=== PATIENT | female | born 1955 | race Caucasian/White ===

== ENCOUNTER 2021-09-08 09:37 | Outpatient (CLI) | payer MEDICARE, BC, SELFPAY ==
--- NOTE | ~2021-09-08 | CT_ITS ---
EXAMINATION: CT sinus wo con DATE: 09/08/2021 10:05 INDICATION: Chronic sinusitis TECHNIQUE: Computed tomography (CT) of the paranasal sinuses was performed without intravenous contra st. The dose-length product was 278.92 mGy-cm. Automated exposure control and iterative reconstructio n technique were employed. COMPARISON: None FINDINGS: Paranasal sinuses are pneumatized. No significant mucosal thickening. No abnormal air-fluid levels. No nasal septal deviation. There are surgical changes of the ostiomeatal units. Mastoids are pneumatized. IMPRESSION: 1. No significant sinus disease. Reviewed, dictated and finalized at location [facility]. [facility]
== END 2021-09-08 09:38 | disposition home or self-care (01) ==
LOC: ANHIMG 09:45
PROVIDERS: PCP Nurse Practitioner Family; Visit Provider Otolaryngology
DX: J32.9 Chronic sinusitis, unspecified (principal)
CPT/HCPCS: 70486

== ENCOUNTER 2025-05-30 11:33 | Emergency (ER) | payer MEDICARE, BC, SELFPAY ==
--- OUTSIDE RECORDS SUMMARY | 2025-05-30 11:36 | XMS_ITS | Encounter Summary ---
Author Organization [facility] Address [address] [place] [address] Care Team Providers Care Shrub Grower Name Role Phone Mairza Garcia MD Primary Care Provider [phone] Encounter Details Date Type Department Care Team (Late st Contact Info) Description 02/16/2025 [employer] Message [facility] Family & Internal Medicine [address] [address] Christian, [facility] Provider Dr leung Social History Tobacco Use Types Packs/Day Years Used Date Smoking Tobacco: Never Passive Smoke Exposure: Never Smokeless Tobacco: Never Comments:NON SMOKER Alcohol Use Standard Drinks/Week Comments Yes 1.7 (1 standard drink = 0.6 oz p ure alcohol) Social AUDIT-C Answer Date Recorded Frequency of Alcohol Consumption Not on file 06/17/2020 Average Number of Drinks Not on file 020 Q3: How often do you have si x or more drinks on one occasion? Never 06/17/2020 PHQ-2 Answer Date Recorded Patient Health Questionnaire-2 Score 0 11/17/2024 Education Answer Date Recorded What is the highest level of school you have completed or the highest degree you have received? 11th grade 09/15/2018 Comments No Sex and Gender Information Value Date Recorded Sex Assigned at Female 10/02/2019 11:06 AM KIDS ACTIVITIES COACH Legal Sex Female 10:53 PM CDT Gender Identity Female 10/02/2019 11:06 AM KIDS ACTIVITIES COACH Sexual Orientation Straight 12/10/2018 7: 53 AM KIDS ACTIVITIES COACH Occupation Industry Job Start Date Job End Date Not on file Not on file Not on file Not on file documented as of this encounter Plan of Treatment Upcoming Encounters Date Type Department Care Team (Late st Contact Info) Description 11/19/2025 10:00 AM KIDS ACTIVITIES COACH Office Visit [facility] Family & Internal Medicine [facility] [address] [place] [address] [place] [address] [address] documented as of this encounter Visit Diagnoses Not on filedocumented in this encounter Additional Health Concerns Infection Onset Date Last Indicated Resolved Time MRSA 06/05/2017 06/05/2017 Assessment Noted Time PHQ-9 Depression Total Score: 0 11/17/19 9:52 AM KIDS ACTIVITIES COACH documented as of this encounter Care Teams Shrub Grower Relationship Specialty [place] [address] [address] PCP - General INTERNAL MEDICINE 12/15/24 documented as of this encounter
--- OUTSIDE RECORDS SUMMARY | 2025-05-30 11:36 | XMS_ITS | Encounter Summary ---
Author Organization [facility] Address [address] [place] [address] Care Team Providers Care Site Manager Name Role Phone Sonja Wagner PA-C Primary Care Provider [phone] Mariza Garcia MD Primary Care Provider [phone] Encounter Details Date Type Department Care Team (Late st Contact Info) Description 09/30/2024 [employer] Message Enc [facility] Family & Internal Medicine [facility] [id number] [place] [address] [facility], [facility] Provider Need to reset appt Social History Tobacco Use Types Packs/Day Years [...] Date Recorded Patient Health Questionnaire-2 Score 0 12/30/2023 Education Answer Date Recorded What is the highest level of school you have completed or the highest degree you have received? 11th grade 09/15/2018 Comments No Sex and Gender Information Value Date Recorded Sex Assigned at Female 10/02/2019 11:06 AM DEPARTMENT CHAIR Legal Sex Female 10:53 PM CDT Gender Identity Female 10/02/2019 11:06 AM DEPARTMENT CHAIR Sexual Orientation Straight 12/10/2018 7: 53 AM DEPARTMENT CHAIR Occupation Industry Job Start Date Job End Date Not on file Not on file Not on file Not on file documented as of this encounter Plan of Treatment Upcoming Encounters Date Type Department Care Team (Late st Contact Info) Description 11/19/2025 10:00 AM DEPARTMENT CHAIR Office Visit [facility] Family & Internal Medicine [facility] [address] [place] [address] [place] [address] [address] documented as of this encounter Visit Diagnoses Not on filedocumented in this encounter Additional Health Concerns Infection Onset Date Last Indicated Resolved Time MRSA 06/05/2017 06/05/2017 Assessment Noted Time PHQ-9 Depression Total Score: 0 01/12/20 22 8:57 AM CDT documented as of this encounter Care Teams Site Manager Relationship Specialty Start Date End Date Sonja Wagner PA-C PCP - General PHYSICIAN OFFICE MANAGER RECEPTIONIST 08/29/23 12/14/24 [place] [address] [address] PCP - General INTERNAL MEDICINE 12/15/24 documented as of this encounter
--- OUTSIDE RECORDS SUMMARY | 2025-05-30 11:36 | XMS_ITS | Encounter Summary ---
Author Organization [facility] Address [address] [place] [address] Care Team Providers Care Pilot Steam Yacht Name Role Phone Vicky Pacheco- Primary Care Provider + Sonja WagnerC Primary Care Provider [phone] Mariza Garcia MD Primary Care Provider [phone] Encounter Details Date Type Department Care Team (Late st Contact Info) Description 04/24/2023 [employer] Message Enc [facility] - [facility] [address] [place], [place] [address] [facility], [facility] Provider Air Quality Message Social History Tobacco Use Types Packs/Day Years Used Date Smoking Tobacco: Never Smokeless Tobacco: Never Comments:NON SMOKER Alcohol [...] Date Recorded Patient Health Questionnaire-2 Score 0 11/30/2022 Education Answer Date Recorded What is the highest level of school you have completed or the highest degree you have received? 11th grade 09/15/2018 Comments No Sex and Gender Information Value Date Recorded Sex Assigned at Female 10/02/2019 11:06 AM PROCESS STRIPPER Legal Sex Female 10:53 PM CDT Gender Identity Female 10/02/2019 11:06 AM PROCESS STRIPPER Sexual Orientation Straight 12/10/2018 7: 53 AM PROCESS STRIPPER Occupation Industry Job Start Date Job End Date Not on file Not on file Not on file Not on file documented as of this encounter Plan of Treatment Upcoming Encounters Date Type Department Care Team (Late st Contact Info) Description 11/19/2025 10:00 AM PROCESS STRIPPER Office Visit [facility] Family & Internal Medicine [facility] [address] [place] [address] [place] [address] [id number] documented as of this encounter Visit Diagnoses Not on filedocumented in this encounter Additional Health Concerns Infection Onset Date Last Indicated Resolved Time MRSA 06/05/2017 06/05/2017 COVID-19 Rule Out 10/29/2023 10/29/2023 10/29/2023 12:19 PM PROCESS STRIPPER COVID-19 Confirmed 10/29/2023 10/29/2023 12:32 AM PROCESS STRIPPER COVID-19 Rule Out 10/29/2023 10/29/2023 10/29/2023 1:27 PM PROCESS STRIPPER COVID-19 Rule Out 12/30/2023 12/30/2023 12/30/2023 9:31 AM PROCESS STRIPPER Assessment Noted Time PHQ-9 Depression Total Score: 0 01/12/20 22 8:57 AM CDT documented as of this encounter Care Teams Pilot Steam Yacht Relationship Specialty Start Date End Date Vicky Pacheco FNP-BC PCP - General Nurse Practitioner Family 08/28/2110/19 Sonja Wagner PA-C PCP - General PHYSICIAN INDUSTRIAL SALES ENGINEER 08/29/23 12/14/24 [place] [address] [address] PCP - General INTERNAL MEDICINE 12/15/24 documented as of this encounter
--- OUTSIDE RECORDS SUMMARY | 2025-05-30 11:36 | XMS_ITS | Clinical Summary ---
Author Organization [facility] Address [address] [place] [address] Care Team Providers Care Metallurgical Technician Name Role Phone Burt Erickson MD Primary Care Provider [phone] Source Comments [facility],non-owned Affiliates and Associated Physician Practices is amultiple site organization consisting of ambulatory clinics and hospital sitesin [place], [place], [place] and [place]. This disclosure is being madepursuant to the Care Everywhere program and may not contain all information available regarding this patient. Last updated 18.[facility] Allergies Active Allergy Reactions Criticality Noted Date Comments Adhesive Sensitivity Rash Medium 05/21/2019 Paper tape ok Cefuroxime GI Discomfort,Bleeding 05/21/2019 Anal bleeding Medications * Be aware that medications may not be up to date on this document. Alwaysverify current medications with the patient. aspirin (ASPIRIN) 81 MG tablet Take 81 mg by mouth once daily Active B Complex Vitamins (B COMPLEX PO) Take by mouth once daily Active Stopover-3 Fatty Acids (FISH OIL) 1000 MG capsule Take 2,000 mg by mouth once daily Active hydroCHLOROthia zide (HYDRODIURIL) 12.5 MG Take 12.5 mg by mouth once daily Active metoprolol succinate XL 24hr (TOPROL XL) 50 MG tablet Take 50 mg by mouth once daily Active multivitamin daily tablet Take 1 tablet by mouth daily with food Active Cholecalciferol (VITAMIN D3) 400 units Take 3 tablets by mouth once daily Active Zinc Oxide 9.38 % by Apply externally route 2 times daily as needed Active oxyCODONE-aceta minophen (PERCOCET) 7.5-325 MG tablet Take 1 tablet by mouth every 6 hours as needed for Pain 40 tablet 9 Active Social History Tobacco Use Types Packs/Day Years Used Date Smoking Tobacco: Never Smokeless Tobacco: Never Alcohol Use Standard Drinks/Week Comments Yes 0 (1 standard drink = 0.6 oz pur e alcohol) wine socially Comments Unknown Sex and Gender Information Value Date Recorded Sex Assigned at Not on file Legal Sex Female 2:15 PM CDT Gender Identity Not on file Sexual Orientation Not on file Last Filed Vital Signs Vital Sign Reading Time Taken Comments Blood Pressure 174/68 05/22/2019 2:55 PM CDT Pulse 85 05/22/2019 2:55 PM CDT Temperature 36.1 C (97 F) 05/22/2019 1:26 PM CDT Respiratory Rate 16 05/22/2019 2:55 PM CDT Oxygen Saturation 92% 05/22/2019 2:55 PM CDT Inhaled Oxygen Concentration - - Weight 148.3 kg (327 lb) 05/22/2019 9:55 AM CDT Height 165.1 cm (5' 5) 05/22/2019 9:55 AM CDT Body Mass Index 54.42 05/22/2019 9:55 AM CDT Plan of Treatment Health Maintenance Due Date Last Done Comments BONE DENSITY TESTING 1955 COLOGUARD (AGES 45-75) - COL ON CA SCREENING 1953 COLON MONITORING 1953 COLONOSCOPY - COLON CA SCREENING 1953 CT COLONOGRAPHY - COLON CA SCREENING 1953 Colorectal Cancer Screening 1953 FIT - COLON CA SCREENING 1953 FLEX SIG - COLON CA SCREENING 1953 LIPID TESTING 1953 MAMMOGRAM 1953 HEPATITIS C SCREENING 02/21/1971 DTAP/TDAP/TD VACCINES (1 - Tdap) 02/26/1972 PNEUMOCOCCAL VACCINE 50+ (1 of 1 - PCV) 2003 ZOSTER VACCINE (1 of 2) 2003 Respiratory Syncytial Virus (RSV) Vaccine Pt: or over 60 yrs (1 - Risk 60-74 years 1-dose series) 2013 COVID-19 VACCINE ( - 2023-2 5 season) 2024 DEPRESSION SCREENING 10/28/2024 INFLUENZA VACCINE (#1) 2025 HEPATITIS B VACCINE Aged Out No longe r eligible based on patient's age to complete this topic HIB VACCINE Aged Out No longer eligi ble based on patient's age to complete this topic HPV VACCINE Aged Out No longer eligi ble based on patient's age to complete this topic MENINGOCOCCAL (Group B) VACC INE SHARED DECISION-MAKING Aged Out No longer eligibl e based on patient's age to complete this topic MENINGOCOCCAL GROUPS A/C/Y/W VACCINE Aged Out No longer eligible b ased on patient's age to complete this topic Insurance MEDICARE [facility] Care Teams Metallurgical Technician Relationship Specialty Start Date End Date Burt Erickson MD PCP - General Family Medicine 05/22/19
--- OUTSIDE RECORDS SUMMARY | 2025-05-30 11:36 | XMS_ITS | Referral Summary ---
Author Organization [facility] Address [address] [place] [address] Care Team Providers Care Lubrication Supervisor Name Role Phone Vicky Pacheco NP Primary Care Provider [phone] Encounters Date Type Department Care Team Description 05/17/2025 Results Follow-Up [facility] Surgery [address] [place] [phone] Karen Oakes PA Screening Mammogram Bilateral W Jose 05/14/2025 8:28 AM CDT - 05/14/2025 11:59 PM CDT Hospital Encounter [facility] - Breast Imaging [address] [place] [address] History of breast cancer; Encounter for screening mammogram for malignant neoplasm of breast Discharge Disposition: Discharge to home or self care 05/14/2025 8:45 AM CDT Office Visit [facility] Surgery [address] [place] [phone] Karen Oakes PA Infiltrating ductal carcinoma of left breast (HCC) (Primary Dx); History of breast cancer; Encounter for screening mammogram for malignant neoplasm of breast; History of partial mastectomy, left from Last 3 Months Allergies Active Allergy Reactions Criticality Noted Date Comments Adhesive Tape-Silicones Rash Medium 08/22/2011 Cefuroxime Other (See comments) Low 04/02/2018 RECTAL BLEEDING AND CRAMPS Cefuroxime Axetil Unknown 11/22/2016 Metformin Diarrhea Low 08/31/2021 Sulfamethoxazole-Trime thoprim Other (See comments) Low 10/09/2023 Kidney pain Medications aspirin 81 mg tablet Active loratadine-pseudo ephedrine (CLARITIN-D 24-hour) 10-240 mg per 24 hr tablet TAKE ONE TABLET BY MOUTH EVERY DAY DIRECTED 2 Active omega 8-soz-uvp-fish oil 100-160-1,000 mg capsule Active meloxicam (MOBIC) 15 mg tablet 8 Active diazePAM (VALIUM) 5 mg tablet 0 8 Active penicillin v potassium (VEETID) 500 mg tablet 8 Active cholecalciferol (VITAMIN D-3) 2,000 unit tablet daily. Ac tive multivitamin tabletIndications :Vitamin Deficiency Prevention Active chlorhexidine (PERIDEX) 0.12 % solution 8 Active glucosamine-chond roitin 500-400 mg tablet daily. Active amoxicillin-clavu lanate (AUGMENTIN) 875-125 mg per tablet 9 Active benzonatate (TESSALON) 100 mg capsule 9 Active hydroCHLOROthiazi de (MICROZIDE) 12.5 mg capsule 9 Active Lacto.acidophilus -Bif.animalis 31 billion cell capsule Take by mouth Active metoprolol XL (TOPROL-XL) 50 mg 24 hr tablet 9 Active predniSONE (DELTASONE) 20 mg tablet 9 Active atorvastatin (LIPITOR) 20 mg tablet Take 1 tablet (20 mg total) by mouth daily Active glyBURIDE (DIABETA) 2.5 mg tablet Take 1 tablet (2.5 mg total) by mouth daily with breakfast Active aspirin 81 mg enteric coated tablet Take 1 tablet (81 mg total) by mouth daily Active albuterol HFA (Ventolin HFA) 90 mcg/actuation inhalerIndication s:Moderate persistent asthma without complication Inhale 2 puffs every 6 (six) hours as needed (coughing, wheezing, shortness of breath, or chest congestion) 18 g 5 1 Active alendronate (FOSAMAX) 35 mg tablet TAKE 1 TABLET BY MOUTH ONCE A WEEK TAKE WITH A FULL GLASS OF WATER IN THE MORNING BEFORE ANY MEDS OR FOOD. SIT UP FOR 30 MINUTES AFTER TAKING 2 Active lisinopriL (PRINIVIL,ZESTRIL ) 5 mg tablet Take 1 tablet (5 mg total) by mouth daily 2 Active montelukast (SINGULAIR) 10 mg tablet Take 1 tablet (10 mg total) by mouth nightly at bedtime. 2 Active omeprazole (PriLOSEC) 40 mg capsule Take 1 capsule (40 mg total) by mouth daily 1 Active semaglutide (OZEMPIC) 0.25 mg or 0.5 mg(2 mg/1.5 mL) pen injector injection Inject 0.5 mg under the skin once a week 2 Active fluticasone furoate-vilantero L (BREO ELLIPTA) 100-25 mcg/dose diskus inhalerIndication s:Maintenance Therapy for Asthma Inhale 1 puff daily Rinse mouth with water after use. Do not swallow. 60 each 6 2 Active Trulicity 3 mg/0.5 mL pen injector Inject 0.5 mL (3 mg total) under the skin once a week 5 Active cetirizine (ZyrTEC) 10 mg tablet Take 1 tablet (10 mg total) by mouth daily 5 Active Active Problems Problem Noted Date Diagnosed Date Abnormal CXR 04/12/2021 Recurrent acute suppurative otitis media of right ear without spontaneous rupture of tympanic membrane 11/15/2020 History of breast cancer 04/08/2019 Elevated alkaline phosphatase level 06/12/2018 Malignant neoplasm of lower- inner quadrant of left female breast 11/22/2016 Chest pain SOB (shortness of breath) Social History Tobacco Use Types Packs/Day Years Used Date Smoking Tobacco: Never Smokeless Tobacco: Never Tobacco Cessation:Counseling Given: Not Answered Alcohol Use Standard Drinks/Week Comments Yes 1 (1 standard drink = 0.6 oz pur e alcohol) nightly Comments No Sex and Gender Information Value Date Recorded Sex Assigned at Not on file Legal Sex Female 3:55 AM CREDIT AND LOAN COLLECTIONS SUPERVISOR Gender Identity Female 04/27/2021 11:40 AM CDT Sexual Orientation Straight 04/24/2023 10 :33 AM CDT 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 Not on file Not on file Last Filed Vital Signs Vital Sign Reading Time Taken Comments Blood Pressure 144/84 04/25/2022 12:57 PM CDT Pulse 74 04/25/2022 12:57 PM CDT Temperature 36.6 C (97.8 F) 10/04/2021 1:10 PM CREDIT AND LOAN COLLECTIONS SUPERVISOR Respiratory Rate 18 04/25/2022 12:5 7 PM CDT Oxygen Saturation 92% 04/25/2022 12: 57 PM CDT Inhaled Oxygen Concentration - - Weight 142.5 kg (314 lb 3.2 oz) 05/14/2025 8:16 AM CDT Height 166.2 cm (5' 5.43) 05/14/2025 8:16 AM CD T Body Mass Index 51.6 05/14/2025 8:16 AM CDT Plan of Treatment Not on file Procedures Procedure Name Priority Date/Time Associated Diagnosis Comments SCREENING MAMMOGRAM BILATERAL W JOSE Schedule Routine, Read Routine (OP Routine) 05/14/2025 8:46 AM CDT History of breast cancer Encounter for screening mammogram for malignant neoplasm of breast from Last 3 Months Results * Screening Mammogram Bilateral W Jose (05/14/2025 8:46 AM CDT) Anatomical Region Laterality Modality Breast Bilateral Mammography Impressions 05/17/2025 1:05 PM CDT Bilateral No evidence of malignancy in either breast. OVERALL BI-RADS FINAL ASSESSMENT: 1 - Negative RECOMMENDATION: Recommend bilateral annual screening mammography. Narrative 05/17/2025 1:05 PM CDT EXAMINATION: Screening Mammogram Bilateral W Jose: 05/14/2025 COMPARISON: Relevant prior studies available at the time of interpretation were reviewed, including the most recent mammogram on: 05/06/2024. TECHNIQUE: Mammography was performed with 2D and digital breast tomosynthesis (DBT) images. CAD was utilized. BREAST PARENCHYMAL COMPOSITION: The breasts are almost entirely fatty. FINDINGS: Bilateral There is no suspicious mass, calcification, or architectural distortion in either breast.There are breast conservation therapy changes. Jaqueline Tejada NP IMG MAMMO PROCEDURES Final Result from Last 3 Months Insurance MEDICARE [facility] MEDICARE [facility] MEDICARE [facility] MEDICARE [facility] [employer] Member Subscriber Plan / Payer (Ef fective 2005-) Name:Jarrodmaribel Candida Mitch Relation to Subscriber:Self Name:Candida De Leon Payer ID:[id number] (NA) Group ID:[id number] Type:[employer] Address: [facility] [id number] [place] [id number] Care Teams Lubrication Supervisor Relationship Specialty [place] [address] [place] [address] PCP - General Nurse Practitioner 10/04/21
--- OUTSIDE RECORDS SUMMARY | 2025-05-30 11:36 | XMS_ITS | Clinical Summary ---
Author Organization [facility] Address [address] [place] [id number] Care Team Providers Care Fish Rod Maker Name Role Phone Esmer Le MD Primary Care Provider [phone] Allergies Active Allergy Reactions Criticality Noted Date Comments Cefuroxime Other (see comment) Low 08/28/2012 Bloody stools, abdominal cramps Metformin Diarrhea Low 08/31/2021 Sulfamethoxazole-Trime thoprim Other (see comment) 10/09/2023 Kidney pain Tape Rash Medium 08/22/2011 Medications aspirin 81 MG tablet Take 1 tablet (81 mg total) by mouth daily. Active vitamin D3, cholecalciferol, 10 MCG (400 UNIT) tablet Take 2 tablets (20 mcg total) by mouth daily. Active Multiple Vitamins-Mineral s (WOMENS MULTI VITAMIN & MINERAL) Tab Take 1 tablet by mouth daily. Active fish oil 1000 MG Cap capsule Take 1 capsule (1,000 mg total) by mouth daily. Active Blood Glucose Monitoring Suppl (TRUE METRIX METER) w/Device KitIndications:T ype 2 diabetes mellitus without complication, without long-term current use of insulin ([facility]/HCC HHS/HCC) 1 each by Does not apply route daily. 1 kit 020 Active Glucose Blood (TRUE METRIX PRO BLOOD GLUCOSE) test stripIndications :Type 2 diabetes mellitus without complication, without long-term current use of insulin (CMS/HCC HHS/HCC) 1 strip by Other route daily. Use as instructed 100 strip 3 020 Active Lancets MiscIndications: Type 2 diabetes mellitus without complication, without long-term current use of insulin ([facility]) 1 each by Does not apply route daily. 1 Container 3 020 Active glucosamine-kayli droitin 500-400 mg Tab tablet Take 1 tablet by mouth daily. Active albuterol sulfate HFA 108 (90 Base) MCG/ACT inhaler INHALE 2 PUFFS BY MOUTH EVERY 6 HOURS NEEDED FOR COUGH WHEEZING SHORTNESS OF BREATH OR CHEST CONGESTION 021 Active FERROUS SULFATE EC 325 (65 Fe) MG tabletIndication s:Iron deficiency anemia, unspecified iron deficiency anemia type Take 1 tablet by mouth twice daily 180 tablet 022 Active ibuprofen (MOTRIN) 800 MG tablet Take 1 tablet (800 mg total) by mouth 2 (two) times daily with meals. 024 Active omeprazole EC (PRILOSEC OTC) 20 MG tablet Take 1 tablet (20 mg total) by mouth daily. Active metoprolol succinate ER (TOPROL-XL) 50 MG 24 hr tabletIndication s:Essential hypertension TAKE 1 TABLET DAILY 90 tablet 025 Active glyBURIDE (DIABETA) 2.5 MG tabletIndication s:Type 2 diabetes mellitus with other circulatory complication, without long-term current use of insulin ([facility]) TAKE 2 TABLETS AT BREAKFASTAND 1 TABLET AT DINNER 270 tablet 025 Active TRULICITY 3 MG/0.5ML injectionIndicat ions:Type 2 diabetes mellitus with microalbuminuria , without long-term current use of insulin ([facility]) INJECT 1 SYRINGE SUBCUTANEOUSLY ONCE A WEEK 4 mL 025 Active alendronate (FOSAMAX) 70 MG tabletIndication s:Osteoporosis, unspecified osteoporosis type, unspecified pathological fracture presence Take 1 tablet (70 mg total) by mouth every 7 days. 4 tablet 6 025 2025 Active levocetirizine (XYZAL) 5 MG tabletIndication s:Seasonal allergies Take 1 tablet (5 mg total) by mouth nightly at bedtime. 30 tablet 1 025 Active lisinopril (PRINIVIL) 20 MG tabletIndication s:Primary hypertension Take 1 tablet (20 mg total) by mouth daily. 90 tablet 1 025 07/24/ 2026 Active atorvastatin (LIPITOR) 20 MG tabletIndication s:Mixed hyperlipidemia TAKE 1 TABLET NIGHTLY AT BEDTIME 90 tablet Active hydroCHLOROthiaz greer (MICROZIDE) 12.5 MG capsuleIndicatio ns:Primary hypertension TAKE 1 CAPSULE DAILY 90 capsule 025 Active BREO ELLIPTA 100-25 MCG/INH inhaler INHALE 1 PUFF BY MOUTH ONCE DAILY RINSE MOUTH WITH WATER AFTER USE. DO NOT SWALLOW 021 2024 Discontinued amoxicillin (AMOXIL) 500 MG capsule Take 4 capsules (2,000 mg total) by mouth once. 025 2024 Discontinued cetirizine (ZYRTEC) 10 MG tabletIndication s:Type 2 diabetes mellitus with microalbuminuria , without long-term current use of insulin ([facility]),Essenti al hypertension,Mix ed hyperlipidemia,S easonal allergies Take 1 tablet (10 mg total) by mouth daily. 90 tablet 1 025 2024 Discontinued atorvastatin (LIPITOR) 20 MG tabletIndication s:Mixed hyperlipidemia TAKE 1 TABLET NIGHTLY AT BEDTIME 90 tablet 025 2024 Discontinued hydroCHLOROthiaz greer (MICROZIDE) 12.5 MG capsuleIndicatio ns:Essential hypertension TAKE 1 CAPSULE DAILY 90 capsule 025 2024 Discontinued lisinopril (PRINIVIL) 10 MG tabletIndication s:Essential hypertension Take 1 tablet (10 mg total) by mouth daily. 90 tablet 2024 Discontinued( Dose adjustment) alendronate (FOSAMAX) 35 MG tabletIndication s:Localized osteoporosis without current pathological fracture Take 1 tablet (35 mg total) by mouth every 7 days. TAKE WITH FULL GLASS OF WATER IN THE MORNING BEFORE ANY MEDS OR FOOD; SIT UP FOR 30 MINUTES AFTER TAKING. 12 tablet 1 025 2024 Discontinued dulaglutide (TRULICITY) 3 MG/0.5ML injectionIndicat ions:Type 2 diabetes mellitus with microalbuminuria , without long-term current use of insulin ([facility]) Inject 3 mg into the skin once a week. 2 mL 025 2024 Discontinued doxycycline monohydrate 100 MG capsuleIndicatio ns:Acute upper respiratory infection, unspecified Take 1 capsule (100 mg total) by mouth 2 (two) times daily for 7 days. 14 capsule 025 2024 Active Problems Problem Noted Date Diagnosed Date Microalbuminuria 05/20/2025 Assessment & Plan (05/20/2025 11:13 AM CDT): Latest Reference Range & Units 02/17/25 07:59 ALBUMIN/CREAT RATIO <30.0 MG/G 39.0 (H) (H): Data is abnormally high On lisinopril already-medication was adjusted recently to improve blood pressure control Osteopenia of neck of right femur 05/16/2025 Gastroesophageal reflux dise ase, unspecified whether esophagitis present 05/16/2025 Assessment & Plan (05/20/2025 11:13 AM CDT): Rarely needs omeprazole lately On the dietary habits Dyslipidemia 05/16/2025 Assessment & Plan (05/20/2025 11:13 AM CDT): Latest Reference Range & Units 02/17/25 07:59 CHOLESTEROL <200.0 MG/DL 133 CHOL/HDL RATIO 0.0 - 4.5 3.3 HDL >40.0 MG/DL 40 (L) LDL (CALCULATED) <100 MG/DL 50 NON HDL CHOLESTEROL <130 MG/DL 93 TRIGLYCERIDES <150 MG/DL 214 (H) VLDL CALCULATION 5 - 55 MG/DL 43 (L): Data is abnormally low (H): Data is abnormally high Currently on atorvastatin 20 mg at supper Recommend to cut back complex sugary products Seasonal allergies 11/17/2024 Assessment & Plan (05/20/2025 11:13 AM CDT): Has postnasal drainage, zyrtec not helping Try Xyzal Orders: levocetirizine (XYZAL) 5 MG tablet; Take 1 tablet (5 mg total) by mouth nightly at bedtime. Body mass index (BMI) 50.0-59.9, adult Type 2 diabetes mellitus wit h other circulatory complication, without long-term current use of insulin ([facility]) 05/01/2023 Morbid (severe) obesity due to excess calories 0 04/22/2023 Class 3 severe obesity witho ut serious comorbidity with body mass index (BMI) of 50.0 to 59.9 in adult, unspecified obesity type 10/11/2022 EDER (obstructive sleep apnea) 10/11/2022 Assessment & Plan (05/20/2025 11:13 AM CDT): Couldn't tolerate CPAP nor oral device Not eligible for Inspire procedure. Clinically feeling all right per the patient Moderate persistent asthma without complication ([facility]) 10/11/2022 Vertigo 08/31/2022 Mixed hyperlipidemia 08/29/2022 Osteoporosis, unspecified os teoporosis type, unspecified pathological fracture presence 08/29/2022 Assessment & Plan (05/20/2025 11:13 AM CDT): Per DEXA January (Osteoporosis of the right femoral neck. Osteopenia of the left femoral neck. ) Orders: alendronate (FOSAMAX) 70 MG tablet; Take 1 tablet (70 mg total) by mouth every 7 days. Thrombocytosis 08/29/2022 Primary osteoarthritis of right knee 08/28/2021 Type 2 diabetes mellitus wit h microalbuminuria, without long-term current use of insulin ([facility]) 04/06/2021 Assessment & Plan (05/20/2025 11:13 AM CDT): Latest Reference Range & Units 02/17/25 07:59 HGB A1C <5.7 % 6.0 (H) (H): Data is abnormally high Currently on Trulicity 3 mg weekly along with DiaBeta 2.5 mg daily Denies having tingling or numbness in the extremities Does see nuclear weapons mechanical specialist yearly History of left breast cancer 04/08/2019 Assessment & Plan (05/20/2025 11:13 AM CDT): Under care by [facility] yearly Elevated erythrocyte sedimentation rate 08/21/20 18 Chronic sinusitis 08/19/2018 Low back pain 07/21/2018 Primary hypertension 08/27/2012 Assessment & Plan (05/20/2025 11:13 AM CDT): Better controlled while on lisinopril 20 mg daily along with the low-salt diet Orders: lisinopril (PRINIVIL) 20 MG tablet; Take 1 tablet (20 mg total) by mouth daily. Resolved Problems Problem Noted Date Diagnosed Date Resolved Date Body mass index (BMI) 50.0-59.9, adult 04/22/2023 05/01/2023 Intolerance of continuous po sitive airway pressure (CPAP) ventilation 10/11/2022 10/15/2022 Morbid obesity with BMI of 50.0-59.9, adult 03/06/2021 05/01/2023 Elevated C-reactive protein (CRP) 08/21/2018 08/29/2022 Tendonitis 08/18/2018 08/29/2022 Cough 07/21/2018 12/09/2019 Malignant neoplasm of lower- inner quadrant of left female breast ([facility]/HCC [facility]) 11/22/2016 Obesity with body mass index 30 or greater 06/12/2016 08/31/2021 Encounters Date Type Department Care Team Description 05/20/2025 10:20 AM CDT Office Visit [facility] Family & Internal Medicine - [address] [phone] Esmer Le MD Medication (Follow up medication / sinus infection) 05/20/2025 Travel from Last 3 Months Immunizations Immunization Administration Dates Next Due Arexvy Respiratory Syncytial Virus (RSV, adjuvanted) 0.5 mL, PF 07/24/2023 Dtap (Generic) 09/15/2018 Fluzone High Dose (IIV, triv alent, 0.5mL) 08/05/2024 Fluzone High Dose - >Age 65 (Prefilled Syringe) 07/24/2023,08/04/2022,07/12/2021 Influenza (Generic) 09/15/2018, 7,08/01/2016,2014,07/26/2014,07/24/2013,10/04/2012 Influenza Adult (Generic) 07/29/2020,,08/07/2015,2013,07/24/2013,10/04/2012 [email or web address] ([employer]) COVID-19 AD26 VACCINE 0.5 ML IM SUSP 01/05/2021 PFIZER COVID-19 (MEADOWS CAP), MRNA, LNP-S, PF, 30 MCG/0.3 ML HAI-SUCROSE, IM 02/08/2022 PFIZER COVID-19 (ORIGINAL FORMULATION, PURPLE CAP) mRNA, LNP-S, PF, 30 MCG/0.3 ML DOSE 08/28/2021 PFIZER COVID-19 BIVALENT (12 +) mRNA, LNP-S, PF, 30 MCG/0.3 ML DOSE 02/27/2023,08/04/2022 Pneumococcal (Pneumovax 23) 09/29/2020,0 07/26/2014,07/24/2013,2011 Pneumococcal (Prevnar 13) 05/15/2018,08/07/2015 Tdap (Generic) 09/15/2018, 7,07/26/2014,2012 Family History Medical History Relation Comments blood cancer Brother 1 MVA Brother 2 Arthritis Father COPD Father Diabetes Father Heart Father Heart Disease Father Hypertension Father Kidney Disease Father Alzheimers Mother Diabetes Mother Hypertension Mother Parkinson's Disease Mother Relation Status Comments Brother 1 Brother 2 Father Mother Social History Tobacco Use Types Packs/Day Years Used Date Smoking Tobacco: Never Passive Smoke Exposure: Never Smokeless Tobacco: Never Tobacco Cessation:Counseling Given: No Comments:NON SMOKER Alcohol Use Standard Drinks/Week Comments [...] Sex Assigned at Female 10/02/2019 11:06 AM GOVERNMENT TEACHER Legal Sex Female 10:53 PM CDT Gender Identity Female 10/02/2019 11:06 AM GOVERNMENT TEACHER Sexual Orientation Straight 12/10/2018 7: 53 AM GOVERNMENT TEACHER Occupation Industry Job Start Date Job End Date Not on file Not on file Not on file Not on file Last Filed Vital Signs Vital Sign Reading Time Taken Comments Blood Pressure 133/78 05/20/2025 10:18 AM CDT Pulse 86 05/20/2025 10:18 AM CDT Temperature 36.6 C (97.9 F) 05/20/2025 10:18 AM CDT Respiratory Rate 18 05/20/2025 10:1 8 AM CDT Oxygen Saturation 97% 05/20/2025 10: 18 AM CDT Inhaled Oxygen Concentration - - Weight 143.2 kg (315 lb 12.8 oz) 2024 10:18 AM CDT Height 165.1 cm (5' 5) 05/20/2025 10:1 8 AM CDT Body Mass Index 52.55 05/20/2025 10:18 AM CDT Plan of Treatment Upcoming Encounters Date Type Department Care Team (Late st Contact Info) Description 11/19/2025 10:00 AM GOVERNMENT TEACHER Office Visit [facility] Family & Internal Medicine - [address] [phone] [place] [id number] [place] [address] Health Maintenance Due Date Last Done Comments Hepatitis C 1971 Zoster Vaccines (1 of 2) 2003 Annual Medicare Wellness Visit 2018 COVID-19 Vaccine ( season) 2025 08/05/2024, 08/16/2023, 02/27/2023, Additional history exists Diabetes: Retinopathy Eye Exam 08/12/2025 08/12/2023, 07/17/2021, 04/27/2020 Hemoglobin A1C 08/19/2025 02/17/2025, 10/29, 04/14/2024, Additional history exists Lipid Panel 08/19/2025 02/17/2025, 09/27, 04/18/2022, Additional history exists Kidney Health Evaluation 02/17/2026 02/17/2025 Dexa Scan (General) 02/23/2026 02/23/2025, 04/18/2022, 03/09/2021, Additional history exists Mammogram Screening 05/14/2026 05/14/2025, 05/06/2024, 04/23/2023, Additional history exists Colorectal Cancer Screening Colonoscopy (10 Years) 11/07/2027 11/07/2017, 11/07/2017 DTaP, Tdap and Td Vaccines (6 - Td or Tdap) 09/15/2028 09/15/2018, 09/15/2018, 08/18/2017, Additional history exists Pneumococcal Vaccine: 50+ Years Completed 09/29/2020, 05/15/2018, 08/07/2015, Additional history exists RSV Immunization or 60+ Years Completed 07/24/2023 PHQ-2 (Physician [place]) Completed 11/17/2024 Meningococcal B Vaccine Aged Out No l onger eligible based on patient's age to complete this topic Meningococcal Vaccine Aged Out No darci azalia eligible based on patient's age to complete this topic RSV Immunizations Under 20 Months Aged Out No longer eligible based on patient's age to complete this topic Procedures Procedure Name Priority Date/Time Associated Diagnosis Comments BONE DENSITY/DEXA Routine 02/23/2025 1:2 2 PM CDT Osteoporosis, unspecified osteoporosis type, unspecified pathological fracture presence LIPID PANEL Routine 02/17/2025 7:59 AM CDT Type 2 diabetes mellitus with microalbuminuria, without long-term current use of insulin ([facility]) Essential hypertension Mixed hyperlipidemia HEMOGLOBIN, GLYCOSYLATED Routine 02/17/2025 7:59 AM CDT Type 2 diabetes mellitus with microalbuminuria, without long-term current use of insulin ([facility] HHS/[facility]) Essential hypertension Mixed hyperlipidemia DIABETIC RETINOPATHY EXAM (NEGATIVE)(SCAN ORDER) Routine 08/12/2023 MAMMOGRAM GENERIC (SCAN ORDER) 04/23/2023 COLONOSCOPY Routine 11/07/2017 12:00 AM GOVERNMENT TEACHER from Last 3 Months or Most Recently Relevant to Health Maintenance Results * BONE DENSITY/DEXA (02/23/2025 1:22 PM CDT) Anatomical Region Laterality Modality Bone Bone Density 02/23/2025 4:21 PM CDT Impressions 02/23/2025 4:23 PM CDT IMPRESSION: WHO Classification: Osteoporosis of the right femoral neck. Osteopenia of the left femoral neck. FRAX Score 10-year fracture risk: No score calculated as there is a T score below -2.5, and previously treated for osteoporosis Ordered By: ESMER LE Interpreted By: Brock Rodriguez MD, 02/23/2025 4:21 PM Narrative 02/23/2025 4:23 PM CDT [facility] [address] [place] [address] Examination: Bone Density Axial Exam Date/Time: 02/23/2025 12:53 PM Reason For Exam: Osteoporosis. On Fosamax. Comparison DEXA: 04/18/2022. Findings: DEXA bone densitometry The bone mineral density (BMD) was determined by dual-energy x-ray absorptiometry, the results are as follows: AP Lumbar Spine L1 through L4 BMD Patient (GM/SQCM): 1.240 T-Score (Standard deviations from young adult peak bone density): 1.8 (Previous T score: 1.3) Left femoral neck: BMD Patient (GM/SQCM): 0.606 T-Score (Standard deviations from young adult peak bone density): -2.2 (Previous T score: -0.1) Total left femur: BMD Patient (GM/SQCM): 1.035 T-Score (Standard deviations from young adult peak bone density): 0.8 (Previous T score: 0.4) Right femoral neck: BMD Patient (GM/SQCM): 0.516 T-Score (Standard deviations from young adult peak bone density): -3.0 (Previous T score: not available) Total right femur: BMD Patient (GM/SQCM): 0.954 T-Score (Standard deviations from young adult peak bone density): 0.1 (Previous T score: not available) Recommendations: All patients should ensure an adequate intake of dietary calcium and vitamin D. The NOF recommend adults under the age of 50 need 1000 mg of calcium and 400-800 IU of vitamin D daily. Effective therapy for the prevention and treatment of osteoporosis include biphosphonates. Follow-up: People with diagnosed cases of osteoporosis or at high risk for fracture should have regular bone mineral density test. For patients eligible for Medicare, routine testing is allowed once every 2 years. Testing frequency can be increased to one year for patients who have rapidly progressing disease, those who are receiving or discontinuing medical therapy to restore bone mass, or have additional risk factors. Procedure Note Brock Rodriguez MD - 02/23/2025 [facility] [address] [place] [address] Examination: Bone Density Axial Exam Date/Time: 02/23/2025 12:53 PM Reason For Exam: Osteoporosis. On Fosamax. Comparison DEXA: 04/18/2022. Findings: DEXA bone densitometry The bone mineral density (BMD) was determined bydual-energy x-ray absorptiometry, the results are as follows: AP Lumbar Spine L1 through L4 BMD Patient (GM/SQCM): 1.240 T-Score (Standard deviations from young adult peak bonedensity): 1.8 (Previous T score: 1.3) Left femoral neck: BMD Patient (GM/SQCM): 0.606 T-Score (Standard deviations from young adult peak bonedensity): -2.2 (Previous T score: -0.1) Total left femur: BMD Patient (GM/SQCM): 1.035 T-Score (Standard deviations from young adult peak bonedensity): 0.8 (Previous T score: 0.4) Right femoral neck: BMD Patient (GM/SQCM): 0.516 T-Score (Standard deviations from young adult peak bonedensity): -3.0 (Previous T score: not available) Total right femur: BMD Patient (GM/SQCM): 0.954 T-Score (Standard deviations from young adult peak bonedensity): 0.1 (Previous T score: not available) Recommendations: All patients should ensure an adequate intake of dietary calcium andvitamin D. The NOF recommend adults under the age of 50 need 1000 mg ofcalcium and 400-800 IU of vitamin D daily. Effective therapy for theprevention and treatment of osteoporosis include biphosphonates. Follow-up: People with diagnosed cases of osteoporosis or at high risk for fractureshould have regular bone mineral density test. For patients eligible forMedicare, routine testing is allowed once every 2 years. Testing frequencycan be increased to one year for patients who have rapidly progressingdisease, those who are receiving or discontinuing medical therapy torestore bone mass, or have additional risk factors. IMPRESSION: WHO Classification: Osteoporosis of the right femoral neck. Osteopenia ofthe left femoral neck. FRAX Score 10-year fracture risk: No score calculated as there is a Tscore below -2.5, and previously treated for osteoporosis Ordered By: ESMER LE Interpreted By: Brock Rodriguez MD, 02/23/2025 4:21 PM Esmer Le MD DEXA Final Resul t * (ABNORMAL) HEMOGLOBIN, GLYCOSYLATED (02/17/2025 7:59 AM CDT) Pathologist [facility] HGB A1C 6.0(H) <5.7 % 02/17/2025 9:15 AM CDT [facility] Comment: INCREASED RISK OF DIABETES <5.7% NON-DIABETES 5.7-6.4% INCREASED RISK FOR FUTURE DIABETES > OR = 6.5 CONSISTENT WITH DIABETES STANDARDS OF MEDICAL CARE IN DIABETES-2010 DIABETES CARE, 33(SUPP 1): S1-S61,2010 ESTIMATED AVG GLUCOSE 126 mg/dL 02/17/2025 9:15 AM CDT [facility] 02/17/2025 7:59 AM CDT Esmer Le MD LABORATORY Final Resul t [facility] [address] [place] [address], * (ABNORMAL) LIPID PANEL (02/17/2025 7:59 AM CDT) CHOLESTEROL 133 <200.0 MG/DL 02/17/2025 9:18 AM CDT [facility] TRIGLYCERIDES 214(H) <150 MG/DL 02/17/2025 9:18 AM T [facility] HDL 40(L) >40.0 MG/DL 02/17/2025 9:18 AM T [facility] LDL (CALCULATED) 50 <100 MG/DL 02/17/2025 9:18 AM T [facility] NON HDL CHOLESTEROL 93 <130 MG/DL 02/17/2025 9:18 AM T [facility] CHOL/HDL RATIO 3.3 0.0 - 4.5 02/17/2025 9:18 AM T [facility] VLDL CALCULATION 43 5 - 55 MG/DL 02/17/2025 9:18 AM T [facility] LIPID INTERPRETATION 02/17/2025 9:18 AM T [facility] Comment: NIH CONCENSUS REPORT RECOMMENDATIONS: ADULT CHILD LOW RISK: CHOLESTEROL <200 <170 TRIGLYCERIDE <150 --- HDL >=60 --- LDL <100 <110 BORDERLINE: CHOLESTEROL 200-239 170-199 TRIGLYCERIDE 150-199 --- HDL 40-59 --- LDL 100-159 110-129 HIGH RISK: CHOLESTEROL >=240 >=200 TRIGLYCERIDE >=200 --- HDL <40 --- LDL >=160 >=130 02/17/2025 7:59 AM CDT us Esmer Le MD LABORATORY Final Resul t Performing Organization Address [facility] Co de Phone Number [facility] [address] [place] [address], [place] [phone] * DIABETIC RETINOPATHY EXAM (NEGATIVE)(SCAN) (08/12/2023) [facility] Scanned SCANNING Final Resu lt Performing Organization Address [facility] de Phone Number [facility] ONBASE * Colonoscopy (11/07/2017 12:00 AM GOVERNMENT TEACHER) 11/07/2017 11/07/2017 Narrative [facility] TO EPIC CONVERSION - 11/07/2017 12:00 AM GOVERNMENT TEACHER Documented hx of procedure Procedure Note , Rahul Burks MD - 08/31/2018 Documented hx of procedure Generic Conversion Md [facility] GI PROCEDURE ORDERABLES Final Result Performing Organization Address [facility] de Phone Number [facility] TO EPIC CONVERSION from Last 3 Months or Most Recently Relevant to Health Maintenance Additional Health Concerns Infection Onset Date Last Indicated MRSA 06/05/2017 06/05/2017 Insurance MEDICARE [facility] Care Teams Fish Rod Maker Relationship Specialty [place] [id number] [address] PCP - General INTERNAL MEDICINE 12/15/24
--- OUTSIDE RECORDS SUMMARY | 2025-05-30 11:36 | XMS_ITS | Encounter Summary ---
Author Organization [facility] Address [address] [place] [address] Care Team Providers Care Poultry Slaughterer Name Role Phone Sonja Wagner PA-C Primary Care Provider [phone] Mariza Garcia MD Primary Care Provider [phone] Encounter Details Date Type Department Care Team (Late st Contact Info) Description 11/27/2023 [place] Mobile Message Enc [facility] Family & Internal Medicine [facility] [id number] [place] [id number] [facility] Provider Due for lab appt Social History Tobacco Use Types Packs/Day [...] Sex Assigned at Female 10/02/2019 11:06 AM STAFFING PROGRAM MANAGER Legal Sex Female 10:53 PM CDT Gender Identity Female 10/02/2019 11:06 AM STAFFING PROGRAM MANAGER Sexual Orientation Straight 12/10/2018 7: 53 AM STAFFING PROGRAM MANAGER Occupation Industry Job Start Date Job End Date Not on file Not on file Not on file Not on file documented as of this encounter Plan of Treatment Upcoming Encounters Date Type Department Care Team (Late st Contact Info) Description 11/19/2025 10:00 AM STAFFING PROGRAM MANAGER Office Visit [facility] Family & Internal Medicine [facility] [address] [place] [address] [place] [id number] [address] documented as of this encounter Visit Diagnoses Not on filedocumented in this encounter Additional Health Concerns Infection Onset Date Last Indicated Resolved Time MRSA 06/05/2017 06/05/2017 COVID-19 Rule Out 12/30/2023 12/30/2023 12/30/2023 9:31 AM STAFFING PROGRAM MANAGER Assessment Noted Time PHQ-9 Depression Total Score: 0 01/12/20 22 8:57 AM CDT documented as of this encounter Care Teams Poultry Slaughterer Relationship Specialty Start Date End Date Sonja Wagner PA-C PCP - General PHYSICIAN PRECISION INSTRUMENT AND TOOL MAKER 08/29/23 12/14/24 [place] [id number] [address] PCP - General INTERNAL MEDICINE 12/15/24 documented as of this encounter
--- OUTSIDE RECORDS SUMMARY | 2025-05-30 11:36 | XMS_ITS | Encounter Summary ---
Author Organization [facility] Address [address] [facility] [address] [place] [address] Phone Care Team Providers Care Senior Business Development Analyst Name Role Phone Vicky Pacheco NP Primary Care Provider [phone] Encounter Details Date Type Department Care Team (Late st Contact Info) Description 05/17/2025 Results Follow-Up [facility] [address] [facility] Floor [address] [place] [address] Karen Oakes PA [address] [facility] [phone] [place] [address] Screening Mammogram Bilateral W Stalin Social History Tobacco Use Types Packs/Day Years Used Date Smoking Tobacco: Never Smokeless Tobacco: Never Alcohol Use Standard Drinks/Week Comments Yes 1 (1 standard drink = 0.6 oz pur e alcohol) nightly Comments No Sex and Gender Information Value Date Recorded Sex Assigned at Not on file 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
--- OUTSIDE RECORDS SUMMARY | 2025-05-30 11:36 | XMS_ITS | Clinical Summary ---
Author Organization [facility] Address [address] [place] [address] Care Team Providers Care Investigator Vice Name Role Phone Vicky Pacheco NP Primary Care Provider [phone] Allergies Active Allergy Reactions Criticality Noted Date [...] MOUTH EVERY DAY DIRECTED 2 Active omega 7-kwi-lww-fish oil 100-160-1,000 mg capsule Active meloxicam (MOBIC) [...] 11/22/2016 Chest pain SOB (shortness of breath) Encounters Date Type Department Care Team Description 05/17/2025 Results Follow-Up [facility] Surgery [address] [place] [address] [address] [place] [address] Karen Oakes PA Screening Mammogram Bilateral W Jose 05/14/2025 8:45 AM CDT Office Visit [facility] Surgery [address] [place] [address] [address] [place] [address] Karen Oakes PA Infiltrating ductal carcinoma of left breast (HCC) (Primary Dx); History of breast cancer; Encounter for screening mammogram for malignant neoplasm of breast; History of partial mastectomy, left 05/14/2025 8:28 AM CDT - 05/14/2025 11:59 PM CDT Hospital Encounter [facility] - Breast Imaging [address] [place] [address] [address] [place] [address] History of breast cancer; Encounter for screening mammogram for malignant neoplasm of breast Discharge Disposition: Discharge to home or self care from Last 3 Months Surgical History Surgery Date Site/Laterality Comments BREAST BIOPSY 04/02/2018 Left TONSILLECTOMY 10/28/1960 - 10/27/1961 APPENDECTOMY 10/28/1974 - 10/27/1975 SECTION 10/28/1983 - 10/27/1984 and 1986 UMBILICAL HERNIA REPAIR 10/28/1987 - 10/27/1988 SINUS SURGERY 10/28/1987 - 10/27/1988 TOTAL ABDOMINAL HYSTERECTOMY W/ BILATERAL SALPINGOOPHORECTOMY 10/28/1994 - 10/27/1995 for benign ovarian cyst REPLACEMENT TOTAL KNEE Left Medical History Medical History Date Comments Generalized headaches Chronic sinus infection Arthritis Morbid obesity with BMI of 45.0-49.9, adult (HCC ) Breast cancer, left (HCC) 08/22/2011 Autoimmune disease Diabetes (HCC) Hypertension Tinnitus Family History Medical History Relation Name Comments liver mass Brother Breast cancer Cousin first Breast cancer Father's Sister great aunt Alzheimer's disease Mother Parkinsonism Mother Relation Name Status Comments Brother Alive Cousin first Alive Father's Sister great aunt Alive Mother Other Paternal great aunt Social History Tobacco Use Types Packs/Day Years Used Date Smoking Tobacco: Never Smokeless Tobacco: Never Tobacco Cessation:Counseling Given: Not Answered Alcohol Use Standard Drinks/Week Comments Yes 1 (1 standard drink = 0.6 oz pur e alcohol) nightly Comments No Sex and Gender Information Value Date Recorded Sex Assigned at Not on file 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 She has had 2 pregnancies resulting in 2 children delivered by . She did not breastfeed her children. She used oral contraceptives from the age of 17 to 29. Surgical menopause in 1994 following SIMA/BSO. She was on hormone replacement therapy for about 8 years from the age of 40 to the age of 48. Last Filed Vital Signs Vital Sign Reading Time Taken Comments Blood Pressure 144/84 04/25/2022 12:57 PM CDT Pulse 74 04/25/2022 12:57 PM CDT Temperature 36.6 C (97.8 F) 10/04/2021 1:10 PM STOCK BUYER Respiratory Rate 18 04/25/2022 12:5 7 PM CDT Oxygen Saturation 92% 04/25/2022 12: 57 PM CDT Inhaled Oxygen Concentration - - Weight 142.5 kg (314 lb 3.2 oz) 05/14/2025 8:16 AM CDT Height 166.2 cm (5' 5.43) 05/14/2025 8:16 AM CD T Body Mass Index 51.6 05/14/2025 8:16 AM CDT Plan of Treatment Health Maintenance Due Date Last Done Comments Colon Cancer Screening-Colonoscopy 1955 Depression Screening 1953 Fall Risk Assessment 1953 Hepatitis C Screening 1955 Hepatitis B Screening 1971 Zoster Vaccine (1 of 2) 2003 Well Visit 65+ 2018 Covid-19 Vaccine (3 - 2023-2 5 season) 2024 08/28/2021, 01/05/2021 Influenza Vaccine (#1) 2025 , 07/29/2020, 08/24/2019, Additional history exists Breast Cancer Screening-Mammogram 05/14/2026 05/14/2025, 05/06/2024, 04/23/2023, Additional history exists Osteoporosis Screening-Bone Density Scan 02/23/2027 02/23/2025, 04/18/2022, 03/09/2021, Additional history exists DTaP/Tdap/Td Vaccine (6 - Td or Tdap) 09/15/2028 09/15/2018, 09/15/2018, 08/18/2017, Additional history exists Pneumococcal vaccine 65+ Completed 020, 05/15/2018, 08/07/2015, Additional history exists Procedures Procedure Name Priority Date/Time Associated Diagnosis [...] Result from Last 3 Months Insurance MEDICARE [facility] MEDICARE [facility] MEDICARE [facility] MEDICARE [facility] Member Subscriber Plan / Payer (Ef fective 2005-Present) Name:Candida De Leon Relation to Subscriber:Self Name:Candida De Leon Payer ID:[id number] (NAIC) Group ID:[id number] Type:[facility] Address: [address] [place] [id number] Care Teams Investigator Vice Relationship Specialty [place] [address] [address] [address] PCP - General Nurse Practitioner 10/04/21
--- NOTE | 2025-05-30 11:40 | ED_ITS ---
HPI - URI/Sore Throat General Chief Complaint: Upper Respiratory Infection Stated Complaint: sinus infection patient presents to Express Care with complaints of sore throat, nasal congestion, sinus pain, dizziness, pressure in ears that began a little over 1 week ago. Patient noted a long history of sinus infections history of sinus s urgeries, last 1 being in 1994. patient noted her current ENT is no longer in network with her insurance and is unable to see them. Patient reports she spoke with primary care physician and was given doxycycline which is not what it normally works for her sinus infections. Patient also noted using [id number] medications with minimal relief of symptoms. Denies fever, chills, body aches, shortness of breath, nausea, vomiting, diarrhea. Related Data Home Medications ?Medication ?Instructions ?Recorded ?Confirmed ?Last Taken ?Type levocetirizine 5 mg tablet mg 05/30/25 Unknown History Allergies Allergy/AdvReac Type Severity Reaction Status Date / Time adhesive tape Allergy Mild Rash Verified 05/30/25 11:46 cefuroxime AdvReac Mild Diarrhea Verified 05/30/25 11:46 metformin AdvReac Mild Diarrhea Verified 05/30/25 11:46 Review of Systems Constitutional: Constitutional: Reports as per HPI, Denies chills, Reports fatigue, Denies fever(s) and Denies weakness Eyes: Eyes: Reports no additional eye complaints ENT: Reports as per HPI, Reports vertigo, Reports dizziness, Reports nasal congestion and Reports sore throat Cardiovascular: Cardiovascular: Reports no additional cardiovascular complaints Respiratory: Respiratory: Reports as per HPI, Denies chest congestion, Reports cough, Denies dyspnea and Denies wheezing Gastrointestinal: Gastrointestinal: Reports no additional gastrointestinal complaints Genitourinary: Genitourinary: Reports no additional female genitourinary complaints Musculoskeletal: Musculoskeletal: Reports no additional musculoskeletal complaints Integumentary/Breasts: Skin/Breast: Reports as per HPI, Denies erythema and Denies rash Neurologic: Reports as per HPI, Reports vertigo, Reports dizziness and Reports headache(s) Psychiatric: Psychiatric: Reports no additional psychiatric complaints Endocrine: Endocrine: Reports no additional endocrine complaints Hematologic/Lymphatic: Hematologic/Lymphatic: Reports no additional hematologic/lymphatic complaints Allergic/Immunologic: Allergic/Immunologic: Reports as per HPI Comments: Seasonal allergies, history of sinus infections [facility] Family History Family History (Updated 11/21/18 @ 13:11 by DOCTOR UNKNOWN) Mother Diabetes mellitus Family history of Parkinson's disease Family history of Alzheimer's disease Social History Social History Smoking status: Never smoker Alcohol intake: current Exam Const: General: healthy appearing and no acute distress Nutritional Appearance: well nourished Orientation/consciousness: patient oriented x3 Limitations: no limitations HENMT: Head: normal to inspection Ears: external ears normal and TM's abnormal bilaterally ( dullness and minimal erythema bilaterally. No fluid or bulging) Face/Nose/Sinus: Normal external nose present Face and sinus: normal facial exam and sinus tenderness ( bilateral) maxillary Mouth: Yes Normal oral and palatal mucosa present, Yes lip normal and Yes moist mucous membranes Throat: posterior oropharynx abnormal ( minimal erythema. no exudate or edema noted) Neck: Neck: normal visual inspection and no lymphadenopathy Resp: Effort & Inspection: normal respiratory effort Auscultation: clear to auscultation bilaterally Cardio: Rate: regular rate Rhythm: regular rhythm Skin: General skin exam: normal color Rashes: no rashes Wounds: no wounds Neuro: General: patient oriented x3 Speech: normal speech Gait exam (Neuro): Normal gait present Psych: Mental Status: mental status grossly normal Affect: normal affect Attitude: cooperative Course Course Level of Care: Express Care Visit MDM - URI/Sore Throat MDM Narrative Medical decision making narrative: Discharge instructions reviewed with patient, as well as provided in writing per nursing staff. The instructions also include specific and strict return/GO TO THE ER as well as f/u information. All questions have been answered, and the patient deny any further questions with discharge and discharge plan. Differential Diagnosis Differential diagnosis: Likely upper respiratory infection, otitis media, sinusitis, viral infection, influenza and pharyngitis Medical Records Attestation: I reviewed the patient's medical records. Discharge Plan Discharge Clinical Impression: Sinusitis Patient Disposition: Home Condition: Stable Instructions: Antibiotic Form, Sinusitis (ED), Warm Compress or Soak (ED) Additional Instructions: Return to urgent care or go to the ER for new or worsening symptoms. Continue to take Tylenol or Motrin for pain. Use a humidifier or vaporizer at night. Take Medications as prescribed. Drink plenty of water. 8-10 glasses per day. Use flonase 2 times per day for 5 days then as needed. may also uses Asterpro nasal spray Take mucinex 2 times per day and be sure to take with 8oz of water. Follow up with Primary provider or ENT if not getting better. Take the entire course of antibiotics ensure to take with probiotics or yogurt Take the full dose of steroids as directed to decrease inflammation and open up sinus and airway Increase water intake to 8-10 glasses per day Patient Language: Slovenian Prescriptions: New amoxicillin-pot clavulanate 875-125 mg tablet 1 tablet PO Q12H Qty: 20 0RF prednisone 50 mg tablet 50 mg PO DAILY Qty: 5 0RF No Action levocetirizine 5 mg tablet Follow-up/Referrals: Radha,MD Mariza [Primary Care Provider] - Time of Disposition: 11:59
[2025-05-30 11:44] VITALS: BP 126/77; PULSE 64; RESP 18; TEMP 36.1; O2SAT 98
== END 2025-05-30 12:02 | disposition home or self-care (01) ==
PROVIDERS: Emergency Provider Nurse Practitioner Family; PCP Internal Medicine
DX: J32.9 Chronic sinusitis, unspecified (principal)
CPT/HCPCS: 99203; G0463